=== PATIENT | female | born 2000 | race Hispanic/Latino ===

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

== ENCOUNTER 2022-02-05 19:14 | Emergency (ER) | payer SELFPAY ==
[2022-02-05] MEDS ORDERED: Sulfameth/Trimethoprim DS 800-160mg TAB ONE (19:37)
== END 2022-02-05 19:59 | disposition home or self-care (01) ==
LOC: BURERS 19:14
DX: L02.416 Cutaneous abscess of left lower limb (principal)
CPT/HCPCS: 99282

== ENCOUNTER 2022-08-20 17:40 | Emergency (ER) | payer SELFPAY ==
[2022-08-20] MEDS ORDERED: predniSONE 20 MG TAB ONE (17:53)
== END 2022-08-20 18:36 | disposition home or self-care (01) ==
LOC: BURERS 17:40
DX: J20.9 Acute bronchitis, unspecified (principal)
CPT/HCPCS: J7512; J7620

== ENCOUNTER 2022-10-07 11:03 | Emergency (ER) | payer SELFPAY | END 2022-10-07 12:12 | disposition home or self-care (01) | LOC: BURERS 11:03 | DX: J98.01 Acute bronchospasm (principal) | CPT/HCPCS: 94640; J7620 ==

== ENCOUNTER 2022-12-04 11:01 | Emergency (ER) | payer SELFPAY ==
[2022-12-04] MEDS ORDERED: Dexamethasone 10 MG/ML VIAL ONE (11:57)
[2022-12-04] MEDS ORDERED: Ipratropium/Albuterol 3 ML NEB ONE (11:57)
[2022-12-04 12:04] LABS: #Basophils 0.1 thou/uL (0.0-0.2); #Eosinphils 0.4 thou/uL (0.0-0.7); #Lymphocytes 2.5 thou/uL (1.20-3.40); #Monocytes 0.6 thou/uL (0.11-0.59); #Neutrophils 7.2 thou/uL (1.40-6.50); %Basophils 1.4 % (0.0-1.0); %Eosinophils 3.5 % (0.0-10.0); %Lymphocytes 22.9 % (21.0-51.0); %Monocytes 5.2 % (0.0-10.0); %Neutrophils 67.1 % (42.0-75.0); Hemoglobin 15.4 g/dL (12.0-16.0); Mean Corpuscular HGB CONC 33.2 g/dL (32.0-36.0); Mean Corpuscular Hemoglobin 28.7 pg (27.0-31.0); Mean Corpuscular Volume 86.5 fl (78.0-98.0); Mean Platelet Volume 8.4 fL (7.4-10.4); Platelet Count 365 10x3/uL (130-400); RBC Distribution Width 12.1 % (11.5-14.5); Red Blood Cell (RBC) Count 5.37 mill/uL (4.20-5.40); White Blood Cell (WBC) Count 10.8 10x3/uL (4.8-10.8)
[2022-12-04 12:20] LABS: ALT (SGPT) 22 U/L (8-55); AST (SGOT) 17 U/L (5-34); Albumin 4.7 g/dL (3.5-5.0); Alkaline Phosphatase 98 U/L (40-110); Anion Gap 14 mmol/L (10-20); BUN (Urea Nitrogen) 10 mg/dL (7.0-18.7); Bilirubin, Total 0.4 mg/dL (0.2-1.2); CK (CPK) 168 U/L (29-168); Calc. Creatinine Clearance 0 mL/min (70-130); Calcium 9.4 mg/dL (7.8-10.44); Carbon Dioxide 24 mmol/L (22-29); Chloride 106 mmol/L (98-107); Estimated GFR 110; Globulin 3.6 g/dL (2.4-3.5); Glucose 91 mg/dL (70-105); Potassium 4.2 mmol/L (3.5-5.1); Protein, Total 8.3 g/dL (6.0-8.3); Sodium 140 mmol/L (136-145)
[2022-12-04 13:24] LABS: Bilirubin Negative (Negative); Blood, Urine Negative (Negative); Clarity Clear (Clear); Glucose, Urine (Dipstick) Negative (Negative); Ketone, Urine Trace mg/dL (Negative); Leukocyte Negative (Negative); Nitrite Negative (Negative); Protein, Urine (Dipstick) Negative (Neg-Trace); Specific Gravity, Urine 1.025 (1.005-1.030); Urobilinogen 0.2 mg/dL (Less than 2)
[2022-12-04 13:25] LABS: Pregnancy Test - Urine (BHCG) Negative (Negative); Pregu Control Background? CLEAR/WHITE (CLR/WHITE); Pregu Control Bar Appear? YES (CONTROL BAR); Specific Gravity 1.025 (1.002-1.036)
== END 2022-12-04 13:30 | disposition home or self-care (01) ==
LOC: BURERS 11:01
DX: J45.909 Unspecified asthma, uncomplicated (principal); Z20.822 Contact with and (suspected) exposure to COVID-19
CPT/HCPCS: 36415; 71045; 80053; 81003; 81025; 82550; 83605; 85025; 87804; 96374; J1100; J7620; U0003; U0005

== ENCOUNTER 2023-02-03 11:08 | Emergency (ER) | payer SELFPAY ==
[2023-02-03] MEDS ORDERED: Ipratropium/Albuterol 3 ML NEB ONE ×2 (11:20→11:41)
[2023-02-03] MEDS ORDERED: predniSONE 20 MG TAB ONE (11:23)
[2023-02-03] MEDS ORDERED: Acetaminophen 500 MG TAB ONE (12:13)
== END 2023-02-03 12:28 | disposition home or self-care (01) ==
LOC: BURERS 11:08
DX: J45.901 Unspecified asthma with (acute) exacerbation (principal)
CPT/HCPCS: 99284; J7512; J7620

== ENCOUNTER 2023-02-23 10:17 | Emergency (ER) | payer SELFPAY ==
[2023-02-23] MEDS ORDERED: predniSONE 20 MG TAB ONE (10:34)
[2023-02-23] MEDS ORDERED: Albuterol 2.5 MG/0.5 ML NEB ONE (10:34)
[2023-02-23] MEDS ORDERED: Ipratropium/Albuterol 3 ML NEB ONE (10:34)
== END 2023-02-23 11:35 | disposition home or self-care (01) ==
LOC: BURERS 10:17
DX: J45.901 Unspecified asthma with (acute) exacerbation (principal); Z79.899 Other long term (current) drug therapy
CPT/HCPCS: 94640; 94760; J7512; J7611; J7620

== ENCOUNTER 2023-03-12 10:18 | Emergency (ER) | payer SELFPAY ==
[2023-03-12] MEDS ORDERED: Ipratropium/Albuterol 3 ML NEB ONE (10:29)
[2023-03-12] MEDS ORDERED: predniSONE 20 MG TAB ONE (10:29)
[2023-03-12] MEDS ORDERED: Acetaminophen 325 MG TAB ONE (10:33)
[2023-03-12] MEDS ORDERED: Albuterol 2.5 MG/0.5 ML NEB ONE ×2 (11:06→11:45)
[2023-03-12] MEDS ORDERED: Budesonide 0.5 MG/2 ML NEB ONE (11:45)
[2023-03-12 12:55] LABS: Hemoglobin 14.6 g/dL (12.0-16.0); Mean Corpuscular Hemoglobin 28.1 pg (27.0-31.0); Mean Corpuscular Volume 87.8 fl (78.0-98.0); Mean Platelet Volume 7.9 fL (7.4-10.4); Platelet Count 323 10x3/uL (130-400); Red Blood Cell (RBC) Count 5.18 mill/uL (4.20-5.40)
[2023-03-12 13:08] LABS: Anion Gap 16 mmol/L (10-20); BUN (Urea Nitrogen) 9 mg/dL (7.0-18.7); Calc. Creatinine Clearance 0 mL/min (70-130); Calcium 9.4 mg/dL (7.8-10.44); Carbon Dioxide 20 mmol/L (22-29); Chloride 106 mmol/L (98-107); Estimated GFR 112; Glucose 98 mg/dL (70-105); Potassium 3.9 mmol/L (3.5-5.1); Sodium 138 mmol/L (136-145)
[2023-03-12 13:12] LABS: Band 6 % (5-11); Eosinophils 1 % (0-10); Lymphocytes 6 % (21-51); MDiff Complete? YES; Monocytes 7 % (0-10); Neutrophil 77 % (42-75); Reactive Lymphocytes 2 % (0-10)
== END 2023-03-12 14:02 | disposition short-term general hospital (02) ==
LOC: BURERS 10:18
DX: J45.901 Unspecified asthma with (acute) exacerbation (principal)
CPT/HCPCS: 71045; 80048; 85025; 85379; J7512; J7611; J7620; J7626

== ENCOUNTER 2023-05-10 14:03 | Emergency (ER) | payer SELFPAY ==
[2023-05-10] MEDS ORDERED: Ipratropium/Albuterol 3 ML NEB ONE (14:32)
[2023-05-10] MEDS ORDERED: predniSONE 20 MG TAB ONE (14:42)
== END 2023-05-10 15:21 | disposition home or self-care (01) ==
LOC: BURERS 14:03
DX: J45.901 Unspecified asthma with (acute) exacerbation (principal)
CPT/HCPCS: J7512; J7620

== ENCOUNTER 2024-05-12 16:10 | Emergency (ER) | payer OTHER ==
[2024-05-12] MEDS ORDERED: Dexamethasone 4 MG TAB ONE (16:22)
[2024-05-12] MEDS ORDERED: Ipratropium/Albuterol 3 ML NEB ONE (16:22)
== END 2024-05-12 16:46 | disposition home or self-care (01) ==
LOC: BURERS 16:10
DX: J45.901 Unspecified asthma with (acute) exacerbation (principal); Z95.1 Presence of aortocoronary bypass graft
CPT/HCPCS: J7620; J8540

== ENCOUNTER 2024-11-20 12:26 | Emergency (ER) | payer OTHER ==
[2024-11-20] MEDS ORDERED: Bicillin LA 1.2 MILLION UNITS/2 ML SYRINGE ONE (13:04)
[2024-11-20] MEDS ORDERED: Dexamethasone 10 MG/ML VIAL ONE (13:04)
== END 2024-11-20 13:21 | disposition home or self-care (01) ==
LOC: BURERS 12:26
DX: J02.0 Streptococcal pharyngitis (principal)
CPT/HCPCS: 96372; 99283; J0561; J1100